=== PATIENT | male | born 1970 | race Caucasian/White ===

== ENCOUNTER 2023-07-19 12:40 | Emergency (ER) | payer MEDICAID ==
[2023-07-19] MEDS ORDERED: SODIUM CHLORIDE 0.9% 1,000 ML IV STA (13:05)
--- NOTE | 2023-07-19 13:06 | ED Physician Documentation ---
PD HPI ABD PAIN - Stated complaint Stated Complaint: ABD/GROIN PAIN - Chief complaint Chief Complaint: Abd Pain - History obtained from History obtained from: Patient - Additional information Additional information: 52-year-old gentleman with history of hepatitis C in remission after treatment related to remote IV drug use presents with 4 days of right upper quadrant pain. He denies fevers, chills, nausea or changes in bowel movements stating that he always has somewhat soft bowel movements. He has a remote history of an appendectomy. Declines pain medication on initial evaluation. Pain is n onradiating and does not seem particular worse after eating. PD PAST MEDICAL HISTORY - Past Medical History Past Medical History: Yes Cardiovascular: Hypertension Respiratory: None Neuro: None Endocrine/Autoimmune: None GI: Hepatitis : None HEENT: None Psych: Anxiety, ADD/ADHD Musculoskeletal: None Derm: None - Past Surgical History Past Surgical History: Yes General: Appendectomy Derm: Skin cancer surgery - Present Medications Home Medications: Ambulatory Orders Medication Instructions Recorded Confirmed No Known Home Medications 07/19/23 07/19/23 - Allergies Allergies/Adverse Reactions: Allergies Allergy/AdvReac Type Severity Reaction Status Date / Time No Known Drug Allergies Allergy Verified 07/19/23 12:47 - Social History Does the pt smoke?: No Smoking Status: Former smoker Does the pt drink ETOH?: No Does the pt have substance abuse?: No - Immunizations Immunizations are current?: Yes - POLST Patient has POLST: No PD ED PE NORMAL - Vitals Vital signs reviewed: Yes - General General: Alert and oriented X 3, No acute distress - HEENT HEENT: PERRL (Anicteric) - Cardiac Cardiac: RRR, No murmur - Respiratory Respiratory: No respiratory distress, Clear bilaterally - Abdomen Abdomen: Normal bowel sounds, Soft, Other (Tender in the right upper quadrant with positive Schmidt sign. No significant lower abdominal tenderness or other surgical signs.) - Extremities Extremities: No edema (But has chronic appearing venous stasis changes.) - Neuro Neuro: Alert and oriented X 3, Normal speech Results - Vitals Vitals: Vital Signs - 24 hr 07/19/23 07/19/23 12:48 12:56 Temperature 36.4 C L 36.5 C Heart Rate 87 87 Respiratory 18 18 Rate Blood Pressure 153/102 H 153/102 H O2 Saturation 99 99 Oxygen O2 Source Room air - Labs Labs: Laboratory Tests 07/19/23 07/19/23 13:25 13:25 WBC 6.3 RBC 5.08 Hgb 14.9 Hct 42.8 MCV 84.3 MCH 29.3 MCHC 34.8 RDW 13.7 Plt Count 155 MPV 8.8 Neut # (Auto) 4.5 Lymph # (Auto) 1.4 [place] # (Auto) 0.4 Eos # (Auto) 0.0 Baso # (Auto) 0.0 Absolute Nucleated RBC 0.00 Nucleated RBC % 0.0 Sodium 137 Potassium 3.7 Chloride 104 Carbon Dioxide 26 Anion Gap 7.0 BUN 14 Creatinine 0.6 Estimated GFR (MDRD) 141 Glucose 84 Calcium 9.4 Total Bilirubin 1.7 H AST 19 ALT 20 Alkaline Phosphatase 51 Total Protein 7.2 Albumin 4.4 Globulin 2.8 Albumin/Globulin Ratio 1.6 Lipase 15 PD Medical Decision Making - ED course ED course: 52-year-old gentleman presents with right upper quadrant pain. He has a history of hep C but does not look like he has decompensated cirrhosis based on examination. CBC, CMP only notable for mild elevation of bilirubin with normal AST and ALT. Upper quadrant ultrasound showing sludge in the gallbladder and presume this is causative. Declined pain medications here. Departure - Departure Disposition: 01 Home, Self Care Clinical Impression: Biliary colic Condition: Good Record reviewed to determine appropriate education?: Yes Instructions: ED [place] W Biliary Colic Follow-Up: Surgical Care [Provider Group] Comments: You do have sludge in your gallbladder which I think is causing your right upper quadrant pain. Reasonable to follow-up with a surgeon for evaluation for consideration for cholecystectomy. Return for new or worsening symptoms. Forms: PCP List
[2023-07-19 13:32] LABS: BASOPHILS % (AUTO) 0.6 %; HCT - HEMATOCRIT 42.8 % (42.0-52.0); HGB - HEMOGLOBIN 14.9 g/dL (14.0-18.0); LYMPHOCYTES # (AUTO) 1.4 10^3/uL (1.5-3.5); LYMPHOCYTES % (AUTO) 21.8 %; MEAN CORPUSCULAR HEMOGLOBIN 29.3 pg (27.0-31.0); MEAN CORPUSCULAR HGB CONC 34.8 g/dL (32.0-36.0); MEAN CORPUSCULAR VOLUME 84.3 fL (80.0-94.0); MEAN PLATELET VOLUME 8.8 fL (7.4-11.4); MONOCYTES # (AUTO) 0.4 10^3/uL (0.0-1.0); MONOCYTES % (AUTO) 6.5 %; NEUTROPHILS # (AUTO) 4.5 10^3/uL (1.5-6.6); NEUTROPHILS % (AUTO) 70.9 %; PLT - PLATELET COUNT 155 10^3/uL (130-450); RED BLOOD COUNT 5.08 10^6/uL (4.70-6.10); RED CELL DISTRIBUTION WIDTH 13.7 % (12.0-15.0); WHITE BLOOD COUNT 6.3 x10^3/uL (4.8-10.8)
[2023-07-19 13:56] LABS: ALBUMIN 4.4 g/dL (3.2-5.5); ALBUMIN/GLOBULIN RATIO 1.6 (1.0-2.2); BILIRUBIN,TOTAL 1.7 mg/dL (0.2-1.0); CALCIUM 9.4 mg/dL (8.5-10.3); CREATININE 0.6 mg/dL (0.6-1.3); POTASSIUM 3.7 mmol/L (3.5-4.5); TOTAL PROTEIN 7.2 g/dL (6.4-8.9)
--- NOTE | 2023-07-19 14:23 | Ultrasound Report ---
PROCEDURE: Abdomen Limited INDICATIONS: ruq pain TECHNIQUE: Real-time focused scanning was performed of the abdomen, with image documentation. COMPARISONS: None. FINDINGS: Liver: Diffusely increased heterogeneous appearance of the liver. Nodular contours. No mass identifi ed middle portal vein measures 1.7 cm with hepatopedal flow. Gallbladder: The gallbladder is retracted with echogenic material suggestive of biliary sludge. Gallb ladder wall measures 3 mm. No pericolic fluid. The sonographic Schmidt's sign per deputy chief counsel. Biliary ducts: Intrahepatic bile ducts are non-dilated. Extrahepatic bile duct caliber measures 4 m m. Normal is 6-7 mm or less in diameter, or 10 mm or less post-cholecystectomy. Pancreas: Visualized portions of the pancreas are sonographically normal. Right kidney: Normal in size and echotexture. Right kidney measures 12.5 cm long. No hydronephrosis or nephrolithiasis. No solid masses. No complex renal cystic lesions which require follow-up. Aorta: Visualized aorta is normal in caliber at less than 3 cm. IVC: Intrahepatic inferior vena cava is patent. Miscellaneous: No free abdominal fluid. IMPRESSION: 1.Sequela of cirrhosis without mass identified. 2.Biliary sludge within the gallbladder. Reviewed by: Roshan Amaya MD on 07/19/2023 1:22 PM AKST Approved by: Roshan Amaya MD on 07/19/2023 1:22 PM [place] Station ID: [id number]
[2023-07-19 14:56] VITALS: BP 140/90; O2SAT 100
== END 2023-07-19 14:49 | disposition home or self-care (01) ==
LOC: ED 12:40
DX: K80.50 Calculus of bile duct without cholangitis or cholecystitis without obstruction (principal); R74.01 Elevation of levels of liver transaminase levels; Z87.891 Personal history of nicotine dependence
CPT/HCPCS: 36415; 80053; 83690; 85025; 99283; 99284